=== PATIENT | male | born 1985 | race Two or more races ===

== ENCOUNTER 2024-05-01 08:00 | Outpatient (AMB) | payer OTHER, SELFPAY ==
[2024-05-01 08:07] VITALS: BP 124/84; PULSE 76; TEMP 36.8; O2SAT 96; BMI 32.4
--- NOTE | 2024-05-01 08:07 | AM.OFFWIN_ITS ---
Intake Vital Signs 05/01/24 08:07 Height 5 ft 4 in Weight 189 lb BMI 32.4 BP 124/84 Blood Pressure Location Rt brachial Position Sitting Pulse 76 Pulse Source Pulse Oximeter Temp 98.3 F Temp Source Oral Pulse Oximetry (%) 96 Oxygen Delivery Method Room Air Intake Visit Reasons: [employer] cold Symptoms Intake Note: Pt is here today c/o coughing and nasal congestion and diarrhea x1wk Allergies No Known Allergies Allergy (Verified 05/01/24 08:08) HPI HPI Comments History of Present Illness Details History - The patient is a 38-year-old male pres enting with respiratory symptoms. - Onset of symptoms was one week prior t o the visit. - Symptoms escalated the previous day, n ecessitating leaving work early. - Reports persistent cough, body aches, and sweating at night. - No reported fever but occasional chest discomfort noted. - History of pneumonia secondary to COVI D-19 infection. - Tylenol being used for symptom relief. - Lung examination confirmed clear sound s, indicating no immediate pulmonary issues. Physical Exam General: Cooperative, healthy appearing, comfortable and no acute distress Orientation/consciousness: Patient oriented x3 Limitations: No limitations Head: Normal to inspection Ears: Hearing grossly normal bilaterally, external ears normal and TM's normal bilaterally Nose: Normal external nose present, Normal nares present and No nasal discharge present Face and sinus: Normal facial exam and Yes sinuses nontender Mouth: Normal oral and palatal mucosa present and moist mucous membranes Throat: Yes tonsils normal, Yes uvula midline. No exudates present Eyes: Appearance normal, both eyes and all related structures Neck: Normal visual inspection Respiratory: Clear to auscultation bilaterally. Normal respiratory effort, able to speak in complete sentences, Actively coughing, no respiratory distress, not tachypneic, no tripod positioning and no use of accessory muscles Cardiovascular: Regular rate and rhythm. Normal S1 and S2 Skin: No rashes or lesions noted Neuro: Patient oriented x3 Extremities: Normal to inspection and Yes no clubbing, cyanosis or edema Review of Systems Const All systems reviewed & are unremarkable except as noted in HPI and below Physical Exam Vital Signs: Last Vital Signs Temp 98.3 F 05/01/24 08:07 Pulse 76 05/01/24 08:07 BP 124/84 05/01/24 08:07 Pulse Ox 96 05/01/24 08:07 Oxygen Delivery Method Room Air 05/01/24 08:07 BMI result Body Mass Index 32.4 Assessment & Plan Assessment & Plan (1) URI, acute: Code(s): J06.9 - Acute upper respiratory infection, unspecified Plan: VSS, PE unremarkable, pt well appearing. Given the presented symptoms and history, the most likely diagnosis is an acute viral respiratory infection, potentially influenza. COVID-19 and RSV testing has been initiated to exclude alternative viral etiologies. As the symptoms have persisted beyond the early stage of infection, antiviral intervention would not be beneficial; therefore, management will focus on symptomatic relief. Tessalon Perles has been prescribed to alleviate nocturnal cough, improving sleep quality. An inhaler is also prescribed to manage any bronchospasms. The patient will commence decongestant therapy during daylight hours to decrease congestion. The patient should refrain from attending work until symptom-free for at least 24 hours, for which potential clearance has been projected for Sunday. No further diagnostic imaging is warranted currently due to the absence of concerning respiratory findings upon auscultation. Patient was informed and verbally consented to the use of an ambient scribe for clinic note documentation during this visit Medications: New albuterol sulfate 90 mcg/actuation 2 puffs inhalation Q6H PRN 8.5 grams 0RF shortness of breath or wheezing or cough benzonatate 200 mg PO TID PRN 14 caps 0RF cough Coding Level of Care Code New Pt Level 3 (22197) Diagnoses URI, acute J06.9
== END 2024-05-01 08:20 | disposition home or self-care (01) ==
PROVIDERS: Visit Provider Physician Assistant
DX: J06.9 Acute upper respiratory infection, unspecified (principal)

== ENCOUNTER 2024-05-01 08:00 | Outpatient (REF) | payer OTHER, SELFPAY ==
[2024-05-01 14:17] LABS: Influenza A PCR NEGATIVE (Negative); Influenza B PCR NEGATIVE (Negative); Resp Syncy Virus RNA Qual PCR NEGATIVE (Negative); SARS COV2 PCR INHOUSE NEGATIVE (Negative)
== END 2024-05-01 08:01 | disposition home or self-care (01) ==
LOC: HO.LNP 08:00
PROVIDERS: Visit Provider Physician Assistant
DX: R09.89 Other specified symptoms and signs involving the circulatory and respiratory systems (principal); J06.9 Acute upper respiratory infection, unspecified
CPT/HCPCS: 0241U